=== PATIENT | female | born 1980 | race Caucasian/White ===

== ENCOUNTER 2019-08-25 17:43 | Emergency (ER) | payer BC, MEDICAID ==
[~2019-08-25] VITALS: Ht 157.5 cm; Wt 61.2 kg
--- NOTE | 2019-08-25 17:50 | NUR ---
ED Nurse Note: Pt ambulated to ED c/o worsened left chest/rib pain x 3 days; recently dx with lung cancer reports no N/V or fever or chills.
[2019-08-25 18:00] VITALS: BP 114/76
--- NOTE | 2019-08-25 18:13 | Emergency Room Report ---
History of Present Illness General Chief Complaint: Chest Pain Source: Patient Present Illness HPI Disclaimer: Please note that this report is being documented using Lancope technology. This can lead to erroneous entry secondary to incorrect interpretation by the dictating instrument. HPI: 39-year-old female history of lung cancer not yet undergoing treatment presents for evaluation of chest pain shortness of breath. Symptoms began a few days ago. She was recently discharged from [facility] after a stay for unspecified cough and vomiting. She claims of the past 2 days since her discharge she has worsening left-sided rib pain that is worse with bending and twisting motion and worse with coughing. Progressively worsening shortness of breath. Denies any fever or chills. Denies back pain. Denies abdominal pain, vomiting or diarrhea. She has not yet started chemotherapy or radiation but is scheduled to start in 3 days. A recent Port-A-Cath was inserted into the right chest. No long distance travel. No history of clots. PMH: Lung cancer, fibromyalgia PSH: Port placed in the right chest Allergies: Denies Social Hx: Former smoker Allergies: Coded Allergies: No Known Allergies (Verified Allergy, Unknown, 12/22/08) Patient History Last Menstrual Period: 07/28/19 Nursing Documentation-PM Past Medical History: No History, Except For Hx Cardiac Problems: No Hx Hypertension: No Hx Pacemaker: No Hx Asthma: No Hx COPD: No Hx Diabetes: No Hx Cancer: Yes - left lung CA stage IIB Hx Gastrointestinal Problems: Yes - Peptic ulcer Hx Dialysis: No History Of Psychiatric Problem: No Hx Neurological Problems: No Hx Cerebrovascular Accident: No Hx Seizures: No Review of Systems All Other Systems: negative except mentioned in HPI Physical Exam Vital Signs Date Time Temp Pulse Resp B/P (MAP) Pulse Ox O2 Delivery O2 Flow Rate FiO2 08/25/19 17:49 98.2 97 16 114/76 (89) 96 Room Air General: Awake and alert, no acute distress HEENT: NC/AT. EOMI. Neck: Supple, trachea midline Chest Wall: Left chest wall tender to palpation without palpable deformity Cardiovascular: RRR. S1 and S2 normal. No murmur appreciated Resp: Normal work of breathing. No cough, wheezing or crackles appreciated Skin: Intact. No abrasions, laceration or rash over the exposed skin MSK: Normal tone and bulk. Moving all extremities. No obvious deformity. Neuro: Awake and alert. Mentating appropriately. Back/Spine: No midline tenderness in the cervical, thoracic or lumbosacral spine. There is paraspinal tenderness in the upper thoracic spine and across the trapezius on the left side. Medical Decision Making Diagnostic Impression: Primary Impression: Chest wall pain Additional Impression: Back spasm ER Course 39-year-old female history of lung cancer, currently untreated, presents for evaluation of left-sided chest wall pain or shortness of breath. Differential includes was not limited to ACS, PE, musculoskeletal chest pain, muscle spasm, bronchitis, pneumonia, pneumothorax to name a few. We will start a broad metabolic infectious work-up. Will send cardiac enzymes and d-dimer. EKG obtained on arrival is nonischemic. Will treat with Toradol, Robaxin, lidocaine patch Laboratory Tests Test 08/25/19 18:19 White Blood Count 9.7 K/UL (4.8-10.8) Red Blood Count 4.44 M/UL (4.20-5.40) Hemoglobin 13.2 G/DL (12.0-16.0) Hematocrit 40.8 % (37.0-47.0) Mean Corpuscular Volume 92 FL (80-99) Mean Corpuscular Hemoglobin 29.8 PG (27.0-31.0) Mean Corpuscular Hemoglobin Concent 32.4 G/DL (32.0-36.0) Red Cell Distribution Width 12.1 % (11.6-14.8) Platelet Count 304 K/UL (150-450) Mean Platelet Volume 6.3 FL (6.5-10.1) L Neutrophils (%) (Auto) 59.9 % (45.0-75.0) Lymphocytes (%) (Auto) 29.2 % (20.0-45.0) Monocytes (%) (Auto) 8.4 % (1.0-10.0) Eosinophils (%) (Auto) 1.1 % (0.0-3.0) Basophils (%) (Auto) 1.3 % (0.0-2.0) D-Dimer 0.35 mg/L FEU (0.00-0.49) Sodium Level 140 MMOL/L (136-145) Potassium Level 4.1 MMOL/L (3.5-5.1) Chloride Level 104 MMOL/L (98-107) Carbon Dioxide Level 26 MMOL/L (21-32) Anion Gap 10 mmol/L (5-15) Blood Urea Nitrogen 11 mg/dL (7-18) Creatinine 0.7 MG/DL (0.55-1.30) Estimate Glomerular Filtration Rate > 60 mL/min (>60) Glucose Level 101 MG/DL (74-106) Calcium Level 9.5 MG/DL (8.5-10.1) Total Bilirubin 0.2 MG/DL (0.2-1.0) Aspartate Amino Transferase (AST) 15 U/L (15-37) Alanine Aminotransferase (ALT) 15 U/L (12-78) Alkaline Phosphatase 73 U/L (46-116) Troponin I 0.000 ng/mL (0.000-0.056) Total Protein 7.2 G/DL (6.4-8.2) Albumin 3.9 G/DL (3.4-5.0) Globulin 3.3 g/dL Albumin/Globulin Ratio 1.2 (1.0-2.7) EKG Diagnostic Results EKG Time: 18:07 Rate: normal Rhythm: NSR ST Segments: no acute changes Other Impression Sinus rhythm, normal axis, normal intervals, no ST segment changes. No S1Q3T3 pattern Rhythm Strip Diag. Results Rhythm Strip Time: 18:07 EP Interpretation: yes Rate: 80 Rhythm: NSR, no PVC's, no ectopy Chest X-Ray Diagnostic Results Chest X-Ray Diagnostic Results : Chest X-Ray Ordered: Yes # of Views/Limited/Complete: 1 View Indication: Chest Pain EP Interpretation: Yes Interpretation: no consolidation, no effusion, no pneumothorax, other - Mass in the left lung Impression: Other - Left lung mass Electronically Signed by: Electronically signed by Dr. Theodore Villeda Reevaluation Time: 19:56 Last Vital Signs Date Time Temp Pulse Resp B/P (MAP) Pulse Ox O2 Delivery O2 Flow Rate FiO2 08/25/19 17:49 98.2 97 16 114/76 (89) 96 Room Air Reevaluation Impression Patient feeling much better after receiving Robaxin and other medications. Labs including d-dimer are negative. She is feeling very well at this time. She will follow-up with her oncologist and PMD. Discussed reasons to return to the emergency department. She understands and agrees with treatment plan. Disposition: HOME, SELF-CARE Condition: Stable Scripts Methocarbamol* (ROBAXIN-750*) 750 Mg Tablet 750 MG PO QID, #28 TAB 0 Refills Prov: Theodore Villeda MD 08/25/19 Lidocaine Patch* (Lidoderm Patch*) 1 Each Adh..patch 1 PATCH TOPIC DAILY, #10 PATCH 0 Refills Patch(es) may remain in place for up to 12 hours in any 24-hour period. Prov: Theodore Villeda MD 08/25/19 Ibuprofen* (MOTRIN*) 600 Mg Tablet 600 MG ORAL Q8H PRN for For Pain, #30 TAB 0 Refills Prov: Theodore Villeda MD 08/25/19 Theodore Villeda MD Aug 25, 2019 18:13
[2019-08-25] MEDS ORDERED: Ketorolac 30mg Inj IV ONE (18:15)
[2019-08-25] MEDS ORDERED: Morphine Sulfate 2mg/ml Inj(IV/IM USE ONLY) IVP ONE (18:15)
--- NOTE | 2019-08-25 18:15 | NUR ---
ED Nurse Note: Obtained blood specimen; sent to labs.
[2019-08-25] MEDS ORDERED: Methocarbamol 750mg tab ORAL ONE (18:30)
[2019-08-25 18:46] LABS: BASOPHILS % (AUTO) 1.3 % (0.0-2.0); EOSINOPHILS % (AUTO) 1.1 % (0.0-3.0); HEMATOCRIT 40.8 % (37.0-47.0); HEMOGLOBIN 13.2 G/DL (12.0-16.0); LYMPHOCYTES % (AUTO) 29.2 % (20.0-45.0); MEAN CORPUSCULAR VOLUME 92 FL (80-99); MONOCYTES % (AUTO) 8.4 % (1.0-10.0); NEUTROPHILS % (AUTO) 59.9 % (45.0-75.0); PLATELET COUNT 304 K/UL (150-450); RED BLOOD COUNT 4.44 M/UL (4.20-5.40); RED CELL DISTRIBUTION WIDTH 12.1 % (11.6-14.8); WHITE BLOOD COUNT 9.7 K/UL (4.8-10.8)
[2019-08-25 18:52] LABS: ANION GAP 10 mmol/L (5-15); BLOOD UREA NITROGEN 11 mg/dL (7-18); CALCIUM 9.5 MG/DL (8.5-10.1); CARBON DIOXIDE 26 MMOL/L (21-32); CHLORIDE 104 MMOL/L (98-107); CREATININE 0.7 MG/DL (0.55-1.30); POTASSIUM 4.1 MMOL/L (3.5-5.1); SODIUM 140 MMOL/L (136-145)
[2019-08-25 18:57] LABS: ALANINE AMINOTRANSFERASE 15 U/L (12-78); ALBUMIN 3.9 G/DL (3.4-5.0); ALBUMIN/GLOBULIN RATIO 1.2 (1.0-2.7); ALKALINE PHOSPHATASE 73 U/L (46-116); ASPARTATE AMINO TRANSFERASE 15 U/L (15-37); BILIRUBIN,TOTAL 0.2 MG/DL (0.2-1.0)
--- NOTE | 2019-08-25 19:07 | NUR ---
HAND-OFF: Report given to Albina CHAVEZ.
--- NOTE | 2019-08-25 19:08 | NUR ---
ED Nurse Note: Report received from KATHY Quick. Pt resting in bed, VSS, no s/s of distress noted.
--- NOTE | 2019-08-25 19:46 | Diagnostic Imaging Report ---
EXAM: XR Chest, 1 View CLINICAL HISTORY: CP TECHNIQUE: Frontal view of the chest. COMPARISON: No relevant prior studies available. FINDINGS: Lungs: Left mid/upper lung 3.5 cm mass versus consolidation. Pleural space: Unremarkable. No pneumothorax. Heart: Unremarkable. No cardiomegaly. Mediastinum: Unremarkable. Bones/joints: Unremarkable. Tubes, lines and devices: Right Port-A-Cath. IMPRESSION: Left mid/upper lung 3.5 cm mass versus consolidation.
[2019-08-25 19:50] VITALS: BP 112/77
[2019-08-25] MEDS ORDERED: ROBAXIN-750750 MG PO (19:55)
[2019-08-25] MEDS ORDERED: IBUPROFEN600 MG ORAL (19:55)
[2019-08-25] MEDS ORDERED: LIDODERM700 M1 TOPIC (19:55)
[2019-08-25 20:00] VITALS: BP 112/77
--- NOTE | 2019-08-25 20:00 | NUR ---
ER DISCHARGE NOTE: Patient is cleared to be discharged home per ERMD, pt is aox4, on room air, with stable vital signs. pt was given dc and prescription instructions, pt was able to verbalize understanding, pt id band removed. pt is able to ambulate with steady gait. pt took all belongings.
== END 2019-08-25 20:00 | disposition home or self-care (01) ==
LOC: EMR 18:05
DX: R07.9 Chest pain, unspecified (principal); M62.830 Muscle spasm of back; R07.81 Pleurodynia; Z87.891 Personal history of nicotine dependence; M79.7 Fibromyalgia; Z87.11 Personal history of peptic ulcer disease; Z85.118 Personal history of other malignant neoplasm of bronchus and lung
CPT/HCPCS: 36415; 71045; 80053; 84484; 85025; 85379; 93005; 96374; 96375; J1885; J2270; Z7502; 99284

== ENCOUNTER 2019-11-13 18:47 | Emergency (ER) | payer MEDICAID ==
[~2019-11-13] VITALS: Ht 157.5 cm; Wt 56.7 kg
[~2019-11-13 18:47] MED LIST: IBUPROFEN600 MG ORAL; LIDODERM700 M1 TOPIC; ROBAXIN-750750 MG PO
--- NOTE | 2019-11-13 18:56 | NUR ---
ED Nurse Note: Pt walked into ED from home. Pt has lung cancer since May 2019. She has had chest pain since beginning of chemotherapy that is in chest, upper back, adn rib area. Pt chest pain is 7/10. Pt states she is constantly nauseous. Pt has proticath access on R chest wall. She also states she has had frequent urination, and need to pee constantly and dysuria. Pt is set up on monitor.
[2019-11-13 18:59] VITALS: BP 128/76
[2019-11-13] MEDS ORDERED: cefTRIAXone 1 GM in NS 55 ML IVPB ONE (19:00)
[2019-11-13] MEDS ORDERED: Morphine Sulfate 4mg/ml Inj (IV USE ONLY) IVP ONE (19:00)
--- NOTE | 2019-11-13 19:00 | NUR ---
ED Nurse Note: XR AT BEDSIDE
--- NOTE | 2019-11-13 19:03 | Emergency Room Report ---
History of Present Illness General Chief Complaint: General Complaint Source: Patient Present Illness HPI Patient presents from home reports that she is having increased pain with urination she had a significant history of bladder infection and Reports that she wants to be early in the diagnosis As last time she had difficulty finding the infection Patient also has been undergoing chemotherapy for left lung cancer And reports chest wall pain from chemotherapy Denies any pleurisy denies any fever denies any posterior neck pain however she does complain of some pain with swallowing which is similar to her previous chemotherapy pain Allergies: Coded Allergies: HALOPERIDOL (Verified Allergy, Unknown, 11/13/19) METOCLOPRAMIDE (Verified Allergy, Unknown, 11/13/19) COVID-19 Screening Contact w/high risk pt: No Recent Travel to affected area: No Experienced COVID-19 symptoms?: No Patient History Past Medical History: see triage record Reviewed Nursing Documentation: PMH: Agreed; PSxH: Agreed Nursing Documentation-PMH Hx Cardiac Problems: No Hx Hypertension: No Hx Pacemaker: No Hx Asthma: No Hx COPD: No Hx Diabetes: No Hx Cancer: Yes - left lung CA stage IIB Hx Gastrointestinal Problems: Yes - Peptic ulcer Hx Dialysis: No Hx Neurological Problems: No Hx Cerebrovascular Accident: No Hx Seizures: No Review of Systems All Other Systems: negative except mentioned in HPI Physical Exam Vital Signs Date Time Temp Pulse Resp B/P (MAP) Pulse Ox O2 Delivery O2 Flow Rate FiO2 11/13/19 18:51 98.8 99 19 124/70 (88) 99 Room Air Sp02 EP Interpretation: reviewed, normal General Appearance: well appearing, no apparent distress Head: normocephalic, atraumatic Eyes: bilateral eye PERRL, bilateral eye EOMI ENT: hearing grossly normal, normal pharynx, TMs + canals normal, uvula midline Neck: full range of motion, supple, no meningismus, no bony tend Respiratory: lungs clear, normal breath sounds, no rhonchi, no respiratory distress, no retraction, no accessory muscle use Cardiovascular #1: normal peripheral pulses, regular rate, rhythm, no edema, no gallop, no JVD, no murmur Gastrointestinal: normal bowel sounds, non tender, soft, no mass, no organomegaly, non-distended, no guarding, no hernia, no pulsatile mass, no rebound Genitourinary: no CVA tenderness Musculoskeletal: normal inspection Neurologic: motor strength/tone normal, steamboat pilot III-XII nml as tested, oriented x3 , sensory intact, responsive Psychiatric: mood/affect normal Skin: no rash Lymphatic: normal inspection, no adenopathy Medical Decision Making Diagnostic Impression: Primary Impression: Chest wall pain Additional Impression: Dysuria ER Course Multiple differentials including but not limited to cardiac, cardiopulmonary vascular, infectious process entertained patient's x-ray looks similar to previous with the left upper Lung mass EKG is normal patient's urine sample is not convincing for UTI On reevaluation patient feels significantly improved Feels much better with significantly decreased pain I feel patient is a candidate for improved pain management as outpatient process And will have further close outpatient follow-up Labs Test 11/13/19 19:38 Urine Color Yellow Urine Appearance Clear Urine pH 8 (4.5-8.0) Urine Specific [place] 1.010 (1.005-1.035) Urine Protein Negative (NEGATIVE) Urine Glucose (UA) Negative (NEGATIVE) Urine Ketones Negative (NEGATIVE) Urine Blood Negative (NEGATIVE) Urine Nitrite Negative (NEGATIVE) Urine Bilirubin Negative (NEGATIVE) Urine Urobilinogen Normal MG/DL (0.0-1.0) Urine Leukocyte Esterase 1+ (NEGATIVE) Urine RBC 0-2 /HPF (0 - 2) Urine WBC 0-2 /HPF (0 - 2) Urine Squamous Epithelial Cells Few /LPF (NONE/OCC) Urine Bacteria Few /HPF (NONE) EKG Diagnostic Results Rate: normal Rhythm: NSR ST Segments: no acute changes Rhythm Strip Diag. Results EP Interpretation: yes Rate: 60 Rhythm: NSR, no PVC's, no ectopy Chest X-Ray Diagnostic Results Chest X-Ray Diagnostic Results : Chest X-Ray Ordered: Yes # of Views/Limited/Complete: 1 View Indication: Chest Pain EP Interpretation: Yes Interpretation: no consolidation, no effusion, no pneumothorax, other - Upper lobe mass similar to previous Impression: Other - Left upper lobe mass similar to previous Electronically Signed by: Binu Deleon DO Last Vital Signs Date Time Temp Pulse Resp B/P (MAP) Pulse Ox O2 Delivery O2 Flow Rate FiO2 11/13/19 18:51 98.8 99 19 124/70 (88) 99 Room Air Status: improved Disposition: HOME, SELF-CARE Condition: Improved Referrals: NOT CHOSEN IPA/,REFERRING (PCP) Additional Instructions: Patient is provided with the discharge instructions notified to follow up with primary doctor in the next 2-3 days otherwise return to the er with any worsening symptoms. Please note that this report is being documented using DRAGON technology. This can lead to erroneous entry secondary to incorrect interpretation by the dictating instrument. Binu Deleon DO November 13, 2019 19:03
--- NOTE | 2019-11-13 19:05 | NUR ---
ED Nurse Note: URINE COLLECTED AND SENT TO LAB
[2019-11-13 19:45] LABS: APPEARANCE,URINE CLEAR; BILIRUBIN, URINE NEGATIVE (NEGATIVE); GLUCOSE, URINE (UA) NEGATIVE (NEGATIVE); KETONES,URINE NEGATIVE (NEGATIVE); LEUKOCYTE ESTERASE ,URINE 1+ (NEGATIVE); NITRITE,URINE NEGATIVE (NEGATIVE); PH,URINE 8 (4.5-8.0); PROTEIN,URINE NEGATIVE (NEGATIVE); UROBILINOGEN,URINE NORMAL MG/DL (0.0-1.0)
[2019-11-13 19:48] LABS: COLOR,URINE YELLOW
[2019-11-13 20:30] VITALS: BP 125/67
[2019-11-13 20:50] VITALS: BP 127/64
--- NOTE | 2019-11-14 08:58 | Diagnostic Imaging Report ---
Indication: Chest pain Technique: One view of the chest Comparison: 08/25/2019 Findings: Less optimal inspiration currently. Left upper lobe lung mass is unchanged. There is suggestion of left hilar adenopathy which is not evident previously. There is some scarring in the left perihilar region and left lung periphery. The remainder of the lungs and pleural spaces are clear. Right chest port catheter is again demonstrated. The heart size is normal. Impression: Unchanged left lung mass but possibly new or increasing left hilar adenopathy, since prior study of 08/25/2019 No infiltrate
== END 2019-11-13 20:50 | disposition home or self-care (01) ==
LOC: EMR 19:01
DX: R30.0 Dysuria (principal); R07.9 Chest pain, unspecified; C34.92 Malignant neoplasm of unspecified part of left bronchus or lung; Z88.8 Allergy status to other drugs, medicaments and biological substances
CPT/HCPCS: 71045; 81003; 93005; 96365; 96375; J0696; J2270; J2405; Z7502; 99284

== ENCOUNTER 2019-11-24 10:35 | Emergency (ER) | payer MEDICAID ==
[~2019-11-24] VITALS: Ht 154.9 cm; Wt 54.4 kg
--- NOTE | 2019-11-24 10:50 | NUR ---
ED Nurse Note: Pt ambulated to ED from home d/t chest pain since 5am and stated that she has been experiencing SOB 30 mins VP [employer]AS[employer]. Pt is AOx4 appears to be restless; crying. Placed on bed and gown; VSS, satting at 98% on RA. Droplet isolation precautions initiated. Per pt, she has hx of lung CA stage 3 and is on chemo; port-a-cath in placed. Will continue to monitor.
[2019-11-24 11:00] VITALS: BP 157/74
--- NOTE | 2019-11-24 11:00 | NUR ---
ED Nurse Note: x-ray at bedside.
--- NOTE | 2019-11-24 11:20 | NUR ---
ED Nurse Note: Blood, urine specimen; covid swabs collected; sent to labs.
[2019-11-24 11:41] LABS: APPEARANCE,URINE CLEAR; BILIRUBIN, URINE NEGATIVE (NEGATIVE); GLUCOSE, URINE (UA) NEGATIVE (NEGATIVE); KETONES,URINE NEGATIVE (NEGATIVE); LEUKOCYTE ESTERASE ,URINE NEGATIVE (NEGATIVE); NITRITE,URINE NEGATIVE (NEGATIVE); PH,URINE 8 (4.5-8.0); PROTEIN,URINE NEGATIVE (NEGATIVE); UROBILINOGEN,URINE NORMAL MG/DL (0.0-1.0)
[2019-11-24 11:42] LABS: HEMATOCRIT 32.1 % (37.0-47.0); HEMOGLOBIN 11.6 G/DL (12.0-16.0); MEAN CORPUSCULAR VOLUME 86 FL (80-99); PLATELET COUNT 219 K/UL (150-450); RED BLOOD COUNT 3.73 M/UL (4.20-5.40); RED CELL DISTRIBUTION WIDTH 12.5 % (11.6-14.8); WHITE BLOOD COUNT 3.5 K/UL (4.8-10.8)
[2019-11-24 11:43] LABS: ANION GAP 9 mmol/L (5-15); BLOOD UREA NITROGEN 14 mg/dL (7-18); CALCIUM 9.3 MG/DL (8.5-10.1); CARBON DIOXIDE 26 MMOL/L (21-32); CHLORIDE 106 MMOL/L (98-107); CREATININE 0.7 MG/DL (0.55-1.30); POTASSIUM 3.6 MMOL/L (3.5-5.1); SODIUM 141 MMOL/L (136-145)
[2019-11-24 11:44] LABS: COLOR,URINE YELLOW
[2019-11-24 11:50] LABS: ALANINE AMINOTRANSFERASE 23 U/L (12-78); ALBUMIN 3.8 G/DL (3.4-5.0); ALBUMIN/GLOBULIN RATIO 1.3 (1.0-2.7); ALKALINE PHOSPHATASE 59 U/L (46-116); ASPARTATE AMINO TRANSFERASE 21 U/L (15-37); BILIRUBIN,TOTAL 0.2 MG/DL (0.2-1.0)
[2019-11-24] MEDS ORDERED: LORazepam 1mg tab ORAL ONE ×2 (12:30→14:15)
[2019-11-24] MEDS ORDERED: Morphine Sulfate 10mg/ml Inj IVP ONE (12:30)
[2019-11-24 12:46] VITALS: BP 125/68
--- NOTE | 2019-11-24 14:18 | Emergency Room Report ---
History of Present Illness General Chief Complaint: Chest Pain Source: Patient Present Illness [facility] This patient has a history of metastatic lung cancer. The patient is undergoing chemotherapy. She presents for all over pain. She has chest pain. She has bladder pain. She states she is incredibly anxious. She states she is unable to sleep. She states all of these symptoms are chronic. She is terrified that she is going to of a heart attack or some other rapid horrible . She is under the care of an oncologist. She is on multiple pain medications and antianxiety medications. She states she is very frustrated because she has had ongoing uncontrolled pain and anxiety. Allergies: Coded Allergies: HALOPERIDOL (Verified Allergy, Unknown, 11/13/19) METOCLOPRAMIDE (Verified Allergy, Unknown, 11/13/19) COVID-19 Screening Contact w/high risk pt: No Recent Travel to affected area: No Experienced COVID-19 symptoms?: Yes COVID-19 symptoms experienced: Shortness of Breath COVID-19 Testing performed ORNAMENTER: No Patient History Past Medical History: GERD, other - Metastatic lung ca Social History: Denies: smoking, alcohol use, drug use Now: No Reviewed Nursing Documentation: PMH: Agreed; PSxH: Agreed Nursing Documentation-PMH Past Medical History: No History, Except For Hx Cardiac Problems: No Hx Hypertension: No Hx Pacemaker: No Hx Asthma: No Hx COPD: No Hx Diabetes: No Hx Cancer: Yes - left lung CA stage IIB Hx Gastrointestinal Problems: Yes - Peptic ulcer Hx Dialysis: No Hx Neurological Problems: No Hx Cerebrovascular Accident: No Hx Seizures: No Review of Systems All Other Systems: negative except mentioned in HPI Physical Exam Vital Signs Date Time Temp Pulse Resp B/P (MAP) Pulse Ox O2 Delivery O2 Flow Rate FiO2 11/24/19 10:47 98.2 102 16 157/74 (101) 97 Room Air Sp02 EP Interpretation: reviewed, normal General Appearance: no apparent distress, alert, GCS 15, non-toxic Head: normocephalic, atraumatic Eyes: bilateral eye normal inspection, bilateral eye PERRL ENT: hearing grossly normal, normal pharynx, no angioedema, normal voice Neck: full range of motion, supple/symm/no masses Respiratory: lungs clear, no respiratory distress, no retraction, no accessory muscle use, speaking full sentences Cardiovascular #1: regular rate, rhythm Gastrointestinal: normal inspection, non-distended Rectal: deferred Musculoskeletal: back normal, normal range of motion, gait/station normal, non- tender Neurologic: alert, motor strength/tone normal, oriented x3, sensory intact, responsive, speech normal Psychiatric: judgement/insight normal, memory normal, mood/affect normal, no suicidal/homicidal ideation Skin: normal color Medical Decision Making Diagnostic Impression: Primary Impression: Chest pain Additional Impressions: Anxiety about health Lung cancer ER Course This patient has nonspecific chest pain. Given the length of symptoms, this workup is very reassuring with negative cardiac enzymes, normal EKG, and normal chest x-ray. The patient is low risk and his symptoms are atypical for acute coronary syndrome. I have very low suspicion for PE, aortic dissection or pneumothorax based on history/physical, laboratory and radiologic workup. The patient has had these ongoing symptoms for some time since being diagnosed with lung cancer. The patient is incredibly anxious and terrified. She has many home medications to include Valium, Xanax and Ambien. I did not feel that it would be appropriate to add any further medications to this regimen that could possibly harm her. She does need to undergo psychotherapy as I think this diagnosis has caused her intense anxiety. I did give the patient Pyridium for her report of urinary frequency and bladder cramping. The patient does have a poor long-term prognosis. The patient was instructed to follow-up closely with her primary care physician and her oncologist. At this time I did not identify an emergency medical condition. The patient was given close return precautions and followup instructions. Laboratory Tests Test 11/24/19 11:15 White Blood Count 3.5 K/UL (4.8-10.8) L Red Blood Count 3.73 M/UL (4.20-5.40) L Hemoglobin 11.6 G/DL (12.0-16.0) L Hematocrit 32.1 % (37.0-47.0) L Mean Corpuscular Volume 86 FL (80-99) Mean Corpuscular Hemoglobin 31.1 PG (27.0-31.0) H Mean Corpuscular Hemoglobin Concent 36.2 G/DL (32.0-36.0) H Red Cell Distribution Width 12.5 % (11.6-14.8) Platelet Count 219 K/UL (150-450) Mean Platelet Volume 5.4 FL (6.5-10.1) L Neutrophils (%) (Auto) % (45.0-75.0) Lymphocytes (%) (Auto) % (20.0-45.0) Monocytes (%) (Auto) % (1.0-10.0) Eosinophils (%) (Auto) % (0.0-3.0) Basophils (%) (Auto) % (0.0-2.0) Differential Total Cells Counted 100 Neutrophils % (Manual) 65 % (45-75) Lymphocytes % (Manual) 26 % (20-45) Monocytes % (Manual) 9 % (1-10) Eosinophils % (Manual) 0 % (0-3) Basophils % (Manual) 0 % (0-2) Band Neutrophils 0 % (0-8) Platelet Estimate Adequate Platelet Morphology Normal Red Blood Cell Morphology Normal Urine Color Yellow Urine Appearance Clear Urine pH 8 (4.5-8.0) Urine Specific [place] 1.010 (1.005-1.035) Urine Protein Negative (NEGATIVE) Urine Glucose (UA) Negative (NEGATIVE) Urine Ketones Negative (NEGATIVE) Urine Blood Negative (NEGATIVE) Urine Nitrite Negative (NEGATIVE) Urine Bilirubin Negative (NEGATIVE) Urine Urobilinogen Normal MG/DL (0.0-1.0) Urine Leukocyte Esterase Negative (NEGATIVE) Urine HCG, Qualitative Negative (NEGATIVE) Sodium Level 141 MMOL/L (136-145) Potassium Level 3.6 MMOL/L (3.5-5.1) Chloride Level 106 MMOL/L (98-107) Carbon Dioxide Level 26 MMOL/L (21-32) Anion Gap 9 mmol/L (5-15) Blood Urea Nitrogen 14 mg/dL (7-18) Creatinine 0.7 MG/DL (0.55-1.30) Estimated Glomerular Filtration Rate > 60 mL/min (>60) Glucose Level 102 MG/DL (74-106) Calcium Level 9.3 MG/DL (8.5-10.1) Total Bilirubin 0.2 MG/DL (0.2-1.0) Aspartate Amino Transferase (AST) 21 U/L (15-37) Alanine Aminotransferase (ALT) 23 U/L (12-78) Alkaline Phosphatase 59 U/L (46-116) Troponin I 0.000 ng/mL (0.000-0.056) Total Protein 6.7 G/DL (6.4-8.2) Albumin 3.8 G/DL (3.4-5.0) Globulin 2.9 g/dL Albumin/Globulin Ratio 1.3 (1.0-2.7) Urine Opiates Screen Negative (NEGATIVE) Urine Barbiturates Screen Negative (NEGATIVE) Phencyclidine (PCP) Screen Negative (NEGATIVE) Urine Amphetamines Screen Negative (NEGATIVE) Urine Benzodiazepines Screen Positive (NEGATIVE) H Urine Cocaine Screen Negative (NEGATIVE) Urine Marijuana (THC) Screen Positive (NEGATIVE) H EKG Diagnostic Results Rate: normal Rhythm: NSR ST Segments: no acute changes Rhythm Strip Diag. Results EP Interpretation: yes Rhythm: NSR, no PVC's, no ectopy Chest X-Ray Diagnostic Results Chest X-Ray Diagnostic Results : Chest X-Ray Ordered: Yes # of Views/Limited/Complete: 1 View Indication: Chest Pain EP Interpretation: Yes Interpretation: other - Lung mass unchanged. Impression: No acute disease Electronically Signed by: Ирина Cedillo DO Last Vital Signs Date Time Temp Pulse Resp B/P (MAP) Pulse Ox O2 Delivery O2 Flow Rate FiO2 11/24/19 12:46 98.2 87 16 125/68 97 Room Air Status: improved Disposition: HOME, SELF-CARE Condition: Improved Scripts Phenazopyridine Hcl* (PYRIDIUM*) 200 Mg Tablet 200 MG ORAL THREE TIMES A DAY, #14 TAB 0 Refills Prov: Ирина Cedillo DO 11/24/19 Referrals: NOT CHOSEN IPA/MD,REFERRING (PCP) Patient Instructions: Nonspecific Chest Pain Ирина Cedillo DO November 24, 2019 14:18
[2019-11-24] MEDS ORDERED: PHENAZOPYRIDIN200 MG ORAL (14:43)
[2019-11-24 15:00] VITALS: BP 128/70
--- NOTE | 2019-11-24 15:00 | NUR ---
ER DISCHARGE NOTE: Pt is cleared to be discharged per ERMD, pt is aox4, on room air, with stable vital signs. pt was given dc and prescription instructions, pt was able to verbalize understanding, pt id band. pt is able to ambulate with steady gait. pt took all belongings.
--- NOTE | 2019-11-24 16:31 | Diagnostic Imaging Report ---
Procedure: XRAY Chest 1v Reason for study: Chest pain Comparison films: 11/13/2019. FINDINGS: There is a Port-A-Cath in place. Vascularity is normal. Left upper lobe mass density again noted unchanged. Cardiac and mediastinal silhouette are within normal limits. CP angles are sharp. The bony thorax appear unremarkable. IMPRESSION: No change left upper lobe mass opacity.
== END 2019-11-24 15:00 | disposition home or self-care (01) ==
LOC: EMR 11:26
DX: R07.9 Chest pain, unspecified (principal); F41.9 Anxiety disorder, unspecified; C34.92 Malignant neoplasm of unspecified part of left bronchus or lung; K21.9 Gastro-esophageal reflux disease without esophagitis; R06.02 Shortness of breath; Z88.8 Allergy status to other drugs, medicaments and biological substances
CPT/HCPCS: 36415; 71045; 80053; 80307; 81003; 81025; 84484; 85007; 85025; 87635; 93005; 96361; 96374; 96375; J2270; J2405; J7030; Z7502; 99284

== ENCOUNTER 2019-12-09 11:51 | Emergency (ER) | payer MEDICAID ==
[~2019-12-09] VITALS: Ht 157.5 cm; Wt 56.7 kg
[~2019-12-09 11:51] MED LIST changes: +PHENAZOPYRIDIN200 MG ORAL
--- NOTE | 2019-12-09 12:26 | Emergency Room Report ---
History of Present Illness General Chief Complaint: Chest Pain Source: Patient Present Illness HPI Disclaimer: Please note that this report is being documented using [employer] technology. This can lead to erroneous entry secondary to incorrect interpretation by the dictating instrument. HPI: 39-year-old female history of metastatic lung cancer presents for evaluation of chest pain, palpitations and headache. Patient was recently discharged from nearby hospital with similar complaints after a long work-up. She was previously receiving chemotherapy but states she is now in hospice care. No longer receiving treatment for her metastatic cancer. Reports that she has no new brain metastases diagnosed on recent hospitalization. She is complaining of persistent bladder spasms for which she was seen several weeks ago in this emergency department. Reports dysuria. Very anxious and emotional. PMH: Metastatic lung cancer, fibromyalgia, bladder spasm PSH: Port placed in the right chest Allergies: Denies Social Hx: Former smoker Allergies: Coded Allergies: HALOPERIDOL (Verified Allergy, Unknown, 11/13/19) METOCLOPRAMIDE (Verified Allergy, Unknown, 11/13/19) COVID-19 Screening Contact w/high risk pt: No Recent Travel to affected area: No Experienced COVID-19 symptoms?: No COVID-19 symptoms experienced: Shortness of Breath COVID-19 Testing performed LEGAL ASSOCIATE: Yes COVID-19 Screening: Negative COVID-19 COVID-19 Testing Source: n Patient History Now: No Nursing Documentation-PMH Hx Cardiac Problems: No Hx Hypertension: No Hx Pacemaker: No Hx Asthma: No Hx COPD: No Hx Diabetes: No Hx Cancer: 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 EOMI. Cardiovascular: Mild tachycardia. S1 and S2 normal. No murmur appreciated Resp: Normal work of breathing. No cough, wheezing or crackles appreciated Abdomen: Abdomen is soft, nondistended. Nontender Skin: Intact. No abrasions, laceration or rash over the exposed skin MSK: Normal tone and bulk. Moving all extremities. No obvious deformity. Neuro: Awake and alert. Mentating appropriately. Medical Decision Making Diagnostic Impression: Primary Impression: Anxiety Additional Impressions: Bladder spasms Palpitations Lung cancer ER Course 39-year-old female history of metastatic cancer now on hospice care presents for evaluation of acute worsening headache, palpitations, anxiety and bladder pain. Patient has been previously seen for the symptoms however given the acute nature of the worsening headache and her history of metastases concern for acute intracranial bleed. Will obtain rapid head CT. We will draw broad labs including cardiac enzymes EKG and chest x-ray to assess her other complaints. Laboratory Tests Test 12/09/19 12:41 12/09/19 13:20 Urine Color Yellow Urine Appearance Clear Urine pH 8 (4.5-8.0) Urine Specific [place] 1.005 (1.005-1.035) Urine Protein Negative (NEGATIVE) Urine Glucose (UA) Negative (NEGATIVE) Urine Ketones Negative (NEGATIVE) Urine Blood Negative (NEGATIVE) Urine Nitrite Negative (NEGATIVE) Urine Bilirubin Negative (NEGATIVE) Urine Urobilinogen Normal MG/DL (0.0-1.0) Urine Leukocyte Esterase Negative (NEGATIVE) White Blood Count 6.1 K/UL (4.8-10.8) Red Blood Count 4.16 M/UL (4.20-5.40) L Hemoglobin 12.8 G/DL (12.0-16.0) Hematocrit 36.6 % (37.0-47.0) L Mean Corpuscular Volume 88 FL (80-99) Mean Corpuscular Hemoglobin 30.7 PG (27.0-31.0) Mean Corpuscular Hemoglobin Concent 35.0 G/DL (32.0-36.0) Red Cell Distribution Width 11.9 % (11.6-14.8) Platelet Count 206 K/UL (150-450) Mean Platelet Volume 5.4 FL (6.5-10.1) L Neutrophils (%) (Auto) 80.9 % (45.0-75.0) H Lymphocytes (%) (Auto) 9.8 % (20.0-45.0) L Monocytes (%) (Auto) 7.5 % (1.0-10.0) Eosinophils (%) (Auto) 0.9 % (0.0-3.0) Basophils (%) (Auto) 0.9 % (0.0-2.0) Sodium Level 141 MMOL/L (136-145) Potassium Level 3.6 MMOL/L (3.5-5.1) Chloride Level 103 MMOL/L (98-107) Carbon Dioxide Level 28 MMOL/L (21-32) Anion Gap 10 mmol/L (5-15) Blood Urea Nitrogen 9 mg/dL (7-18) Creatinine 0.8 MG/DL (0.55-1.30) Estimated Glomerular Filtration Rate > 60 mL/min (>60) Glucose Level 120 MG/DL (74-106) H Calcium Level 9.8 MG/DL (8.5-10.1) Magnesium Level 1.8 MG/DL (1.8-2.4) Total Bilirubin 0.3 MG/DL (0.2-1.0) Aspartate Amino Transferase (AST) 18 U/L (15-37) Alanine Aminotransferase (ALT) 24 U/L (12-78) Alkaline Phosphatase 52 U/L (46-116) Troponin I 0.000 ng/mL (0.000-0.056) Total Protein 6.9 G/DL (6.4-8.2) Albumin 4.4 G/DL (3.4-5.0) Globulin 2.5 g/dL Albumin/Globulin Ratio 1.8 (1.0-2.7) EKG Diagnostic Results EKG Time: 12:18 Rate: normal Rhythm: NSR ST Segments: no acute changes Other Impression Sinus rhythm, normal axis, normal intervals, no ST segment changes Rhythm Strip Diag. Results Rhythm Strip Time: 12:18 EP Interpretation: yes Rate: 80s Rhythm: NSR, no PVC's, no ectopy Chest X-Ray Diagnostic Results Chest X-Ray Diagnostic Results : Chest X-Ray Ordered: Yes # of Views/Limited/Complete: 1 View Indication: Chest Pain EP Interpretation: Yes Interpretation: no effusion, no pneumothorax, other - Left upper lobe mass unchanged from previous. Impression: Other - Left upper lobe mass Electronically Signed by: Electronically signed by Dr. Theodore Villeda CT/MRI/US Diagnostic Results CT/MRI/US Diagnostic Results : Impression Final Report EXAM: CT Head Without Intravenous Contrast CLINICAL HISTORY: H/A TECHNIQUE: Axial computed tomography images of the head/brain without intravenous contrast. CTDI is 53.4 mGy and DLP is 1075.7 mGy-cm. One or more of the following dose reduction techniques were used: automated exposure control, adjustment of the mA and/or kV according to patient size, use of iterative reconstruction technique. COMPARISON: None FINDINGS: Brain: No acute infarct or hemorrhage. No extra-axial fluid collection. No mass effect or midline shift. Ventricles and sulci: Normal. No ventriculomegaly or intraventricular hemorrhage. Bones: Normal. No bony lesion or fracture. Subcutaneous tissues: Normal. Sinuses: Normal. No air-fluid levels or mucosal thickening. Mastoid air cells: Normal. Orbits: Grossly unremarkable. IMPRESSION: No acute intracranial abnormality. Radiologist: Jose Enrique Self M.D. Electronically Signed: 12/09/19 12:55 Study ready at 12:54 and initial results transmitted at 12:55 Reevaluation Time: 14:00 Last Vital Signs Date Time Temp Pulse Resp B/P (MAP) Pulse Ox O2 Delivery O2 Flow Rate FiO2 12/09/19 11:56 98.4 106 19 107/61 (76) 96 Room Air Reevaluation Impression Chest x-ray redemonstrates the left upper lobe mass seen on previous imaging consistent with the patient's history of lung cancer. No findings of bleeding or mass noted. Labs have returned within normal limits including a negative troponin. EKG unchanged from previous. She is very anxious and emotional. Urinalysis does not suggest a urinary tract infection at this time the patient complaining of persistent urinary symptoms. She has been treated for bladder spasm with baclofen in the past and states this was the only successful treatment. Will prescribe a short course of baclofen until the patient can establish yourself and hospice care which is scheduled for later today. She is stable for outpatient follow-up. I urged her to discuss today's visit with her oncologist and PMD as well as her hospice team. She understands and agrees with treatment plan will be discharged home. Disposition: HOME, SELF-CARE Condition: Stable Scripts Baclofen* (BACLOFEN*) 10 Mg Tablet 10 MG ORAL THREE TIMES A DAY for 3 Days, #10 TAB Prov: Theodore Villeda MD 12/09/19 Ondansetron (Zofran) 4 Mg Tablet 4 MG ORAL Q6H PRN for Nausea & Vomiting for 5 Days, #20 TAB Prov: Theodore Villeda MD 12/09/19 Referrals: NOT CHOSEN IPA/MD,REFERRING (PCP) Theodore Villeda MD December 09, 2019 12:26
[2019-12-09] MEDS ORDERED: Morphine Sulfate 4mg/ml Inj (IV USE ONLY) IVP ONE (12:30)
--- NOTE | 2019-12-09 12:55 | Diagnostic Imaging Report ---
EXAM: CT Head Without Intravenous Contrast CLINICAL HISTORY: H/A TECHNIQUE: Axial computed tomography images of the head/brain without intravenous contrast. CTDI is 53.4 mGy and DLP is 1075.7 mGy-cm. One or more of the following dose reduction techniques were used: automated exposure control, adjustment of the mA and/or kV according to patient size, use of iterative reconstruction technique. COMPARISON: None FINDINGS: Brain: No acute infarct or hemorrhage. No extra-axial fluid collection. No mass effect or midline shift. Ventricles and sulci: Normal. No ventriculomegaly or intraventricular hemorrhage. Bones: Normal. No bony lesion or fracture. Subcutaneous tissues: Normal. Sinuses: Normal. No air-fluid levels or mucosal thickening. Mastoid air cells: Normal. Orbits: Grossly unremarkable. IMPRESSION: No acute intracranial abnormality.
[2019-12-09 13:02] LABS: APPEARANCE,URINE CLEAR; BILIRUBIN, URINE NEGATIVE (NEGATIVE); GLUCOSE, URINE (UA) NEGATIVE (NEGATIVE); KETONES,URINE NEGATIVE (NEGATIVE); LEUKOCYTE ESTERASE ,URINE NEGATIVE (NEGATIVE); NITRITE,URINE NEGATIVE (NEGATIVE); PH,URINE 8 (4.5-8.0); PROTEIN,URINE NEGATIVE (NEGATIVE); UROBILINOGEN,URINE NORMAL MG/DL (0.0-1.0)
[2019-12-09 13:05] LABS: COLOR,URINE YELLOW
[2019-12-09 14:01] LABS: BASOPHILS % (AUTO) 0.9 % (0.0-2.0); EOSINOPHILS % (AUTO) 0.9 % (0.0-3.0); HEMATOCRIT 36.6 % (37.0-47.0); HEMOGLOBIN 12.8 G/DL (12.0-16.0); LYMPHOCYTES % (AUTO) 9.8 % (20.0-45.0); MEAN CORPUSCULAR VOLUME 88 FL (80-99); MONOCYTES % (AUTO) 7.5 % (1.0-10.0); NEUTROPHILS % (AUTO) 80.9 % (45.0-75.0); PLATELET COUNT 206 K/UL (150-450); RED BLOOD COUNT 4.16 M/UL (4.20-5.40); RED CELL DISTRIBUTION WIDTH 11.9 % (11.6-14.8); WHITE BLOOD COUNT 6.1 K/UL (4.8-10.8)
[2019-12-09 14:19] LABS: ANION GAP 10 mmol/L (5-15); BLOOD UREA NITROGEN 9 mg/dL (7-18); CALCIUM 9.8 MG/DL (8.5-10.1); CARBON DIOXIDE 28 MMOL/L (21-32); CHLORIDE 103 MMOL/L (98-107); CREATININE 0.8 MG/DL (0.55-1.30); POTASSIUM 3.6 MMOL/L (3.5-5.1); SODIUM 141 MMOL/L (136-145)
[2019-12-09 14:25] LABS: ALANINE AMINOTRANSFERASE 24 U/L (12-78); ALBUMIN 4.4 G/DL (3.4-5.0); ALBUMIN/GLOBULIN RATIO 1.8 (1.0-2.7); ALKALINE PHOSPHATASE 52 U/L (46-116); ASPARTATE AMINO TRANSFERASE 18 U/L (15-37); BILIRUBIN,TOTAL 0.3 MG/DL (0.2-1.0)
[2019-12-09] MEDS ORDERED: ZOFRAN4 M1 ORAL (14:31)
[2019-12-09] MEDS ORDERED: BACLOFEN10 MG ORAL (14:31)
--- NOTE | 2019-12-09 15:04 | Diagnostic Imaging Report ---
EXAM: XR Chest, 1 View CLINICAL HISTORY: CP TECHNIQUE: Frontal view of the chest. COMPARISON: Chest radiograph on 11/24/2019 FINDINGS: Hardware: Right-sided Port-A-Cath terminates near the junction of the SVC and right atrium. Lungs/pleura: Stable opacity in the left upper lung. No other focal consolidation. No pleural effusion or pneumothorax. Heart/mediastinum: Normal. No cardiomegaly. Soft tissues: Unremarkable. Bones: No acute fracture. Upper abdomen: Normal. IMPRESSION: Stable opacity in the left upper lung. No other focal consolidation.
[2019-12-09 18:10] VITALS: BP 107/75
[2019-12-10] MEDS ORDERED: VALIUM5 MG ORAL (00:30)
[2019-12-10] MEDS ORDERED: NORCO 5-325 TA1 EAC1 ORAL (00:30)
== END 2019-12-09 14:54 | disposition home or self-care (01) ==
LOC: EMR 12:10
DX: F41.9 Anxiety disorder, unspecified (principal); N32.89 Other specified disorders of bladder; R00.2 Palpitations; C34.92 Malignant neoplasm of unspecified part of left bronchus or lung; R06.02 Shortness of breath; Z88.8 Allergy status to other drugs, medicaments and biological substances; M79.7 Fibromyalgia; Z87.891 Personal history of nicotine dependence; R30.0 Dysuria; R00.0 Tachycardia, unspecified
CPT/HCPCS: 36415; 70450; 71045; 80053; 81003; 83735; 84484; 85025; 93005; 96361; 96374; 96375; J2270; J2405; J7030; Z7502; 99284

== ENCOUNTER 2019-12-09 22:47 | Emergency (ER) | payer MEDICAID ==
[~2019-12-09] VITALS: Ht 157.5 cm; Wt 54.4 kg
[~2019-12-09 22:47] MED LIST changes: +BACLOFEN10 MG ORAL; +ZOFRAN4 M1 ORAL
[2019-12-09 23:00] VITALS: BP 114/60
--- NOTE | 2019-12-09 23:42 | Emergency Room Report ---
History of Present Illness General Chief Complaint: Headache Source: Patient Present Illness HPI Patient is a 39-year-old female history of metastatic lung cancer presents for evaluation of anxiety, palpitations, and headache. Patient was recently discharged from nearby hospital with similar complaints after a long work-up. She was also seen here this morning for the similar complaint. She was previously receiving chemotherapy but states she is now in hospice care. No longer receiving treatment for her metastatic cancer. Reports that she has new brain metastases diagnosed on recent hospitalization at [facility]. Patient states that she was given pain medication and was discharged home this morning. Patient states that she is supposed to have hospice care but that they were unable to see them this weekend due to the COVID-19 pandemic in the current [place]. Patient is requesting pain medicine as well as something for anxiety. Allergies: Coded Allergies: HALOPERIDOL (Verified Allergy, Unknown, 11/13/19) METOCLOPRAMIDE (Verified Allergy, Unknown, 11/13/19) COVID-19 Screening Contact w/high risk pt: No Recent Travel to affected area: No Experienced COVID-19 symptoms?: No COVID-19 symptoms experienced: Shortness of Breath COVID-19 Testing performed HANDS PARTER: No Patient History Last Menstrual Period: na Now: No Reviewed Nursing Documentation: PMH: Agreed; PSxH: Agreed Nursing Documentation-PMH Past Medical History: No History, Except For Hx Cardiac Problems: No Hx Hypertension: No Hx Pacemaker: No Hx Asthma: No Hx COPD: No Hx Diabetes: No Hx Cancer: Yes - left lung CA stage IIB Hx Gastrointestinal Problems: Yes - Peptic ulcer Hx Dialysis: No Hx Neurological Problems: No Hx Cerebrovascular Accident: No Hx Seizures: No Review of Systems All Other Systems: negative except mentioned in HPI Physical Exam Vital Signs Date Time Temp Pulse Resp B/P (MAP) Pulse Ox O2 Delivery O2 Flow Rate FiO2 12/09/19 22:55 98.1 97 17 114/60 (78) 97 Room Air Sp02 EP Interpretation: reviewed, normal General Appearance: alert, GCS 15, other - anxious Head: normocephalic, atraumatic Eyes: bilateral eye normal inspection, bilateral eye PERRL ENT: hearing grossly normal, normal pharynx, no angioedema, normal voice Neck: full range of motion, supple/symm/no masses Respiratory: chest non-tender, lungs clear, normal breath sounds, speaking full sentences, other - Right anterior chest wall PowerPort in place Cardiovascular #1: regular rate, rhythm, no edema Gastrointestinal: normal bowel sounds, non tender, soft, non-distended, no guarding, no rebound Rectal: deferred Genitourinary: no CVA tenderness Musculoskeletal: back normal, normal range of motion, calf tenderness, gait/ station normal, non-tender Neurologic: alert, motor strength/tone normal, oriented x3, sensory intact, responsive, speech normal Psychiatric: anxious Skin: no rash Lymphatic: no adenopathy Medical Decision Making Diagnostic Impression: Primary Impression: Anxiety Additional Impressions: Palpitations Pain ER Course Patient states that she is stage IV metastatic lung cancer and no longer on treatment. She states that she is very anxious about her health. Patient also complains of chronic pain which is unchanged. Patient's labs demonstrate no acute abnormalities. Patient has been hydrated and I have treated her anxiety and pain. I have given patient prescription for 3 days until she can see her hospice care nurse. After discussing risks and benefits of further diagnostics , treatment plans, as well as indications for and risks of admission, the patient is agreeable to being discharged home. I have explained that their evaluation and treatment in the emergency department today is an important step towards them achieving better health but that their evaluation today is not intended to replace further evaluation and treatment by a physician in their local clinic. I have explained that while the current findings suggest no immediate life threatening emergency they will require further evaluation and treatment by a physician of their choice in their area. They understand that it will be necessary for them to review the final reports of their ED visit with their clinic physician. We have reviewed indications for return to the Emergency Department. I have explained that additional time may need to pass and/or additional testing as an outpatient may be necessary before a definitive diagnosis can be made. They tell me they are willing to follow up as instructed within the timeframe I recommend. They appear to understand what we discussed. Additionally they understand that if they are unable to be seen by an outpatient physician they are welcome, and in fact should, return to the Emergency Department for a repeat evaluation. The patient is stable at time of discharge. Last Vital Signs Date Time Temp Pulse Resp B/P (MAP) Pulse Ox O2 Delivery O2 Flow Rate FiO2 12/08/20 22:55 98.1 97 17 114/60 (78) 97 Room Air Disposition: HOME, SELF-CARE Condition: Stable Scripts Hydrocodone Bit/Acetaminophen 5-325* (NORCO 5-325 TABLET*) 1 Each Tablet 1 TAB ORAL Q6H PRN for FOR PAIN, #15 TAB 0 Refills Prov: Gabby Cook M.D. 12/10/19 Diazepam* (VALIUM*) 5 Mg Tablet 5 MG ORAL TID PRN for ANXIETY, #15 TAB 0 Refills Prov: Gabby Cook M.D. 12/10/19 Referrals: NON PHYSICIAN (PCP) Additional Instructions: The patient was provided with discharge instructions, notified to follow-up with a primary care doctor and or specialist in the next 24-48 hours, and to return to the ED if they have worsening of their symptoms. Please note that this report is being documented using [employer] technology. This can lead to erroneous entry secondary to incorrect interpretation by the dictating instrument. Gabby Cook M.D. December 09, 2019 23:42
--- NOTE | 2019-12-09 23:50 | Diagnostic Imaging Report ---
EXAM: XR Chest, 1 View CLINICAL HISTORY: ABD PAIN TECHNIQUE: Frontal view of the chest. COMPARISON: Same-day study 10 hours prior FINDINGS: Lungs: Persistent left upper lung hazy 2.5 cm opacity concerning for pneumonia, recommend correlation with prior imaging or CT to further characterize. Low lung volumes with bronchovascular crowding. No consolidation, pleural effusion, or pneumothorax. Pleural space: See above. Heart: Unremarkable. No cardiomegaly. Mediastinum: Unremarkable. Bones/joints: Unremarkable. Tubes, lines and devices: Unchanged right chest IJ approach infusion port. IMPRESSION: 1. Persistent left upper lung hazy 2.5 cm opacity concerning for pneumonia, recommend correlation with prior imaging or CT to further characterize. 2. Unchanged right chest IJ approach infusion port. 3. Low lung volumes with bronchovascular crowding. 4. Otherwise no acute cardiopulmonary disease. 5. If there is continued concern, recommend frontal and lateral chest radiographs or CT. 6. No findings to suggest pneumoperitoneum or bowel obstruction
[2019-12-10] MEDS ORDERED: Morphine Sulfate 4mg/ml Inj (IV USE ONLY) IVP ONE
[2019-12-10 00:10] LABS: BASOPHILS % (AUTO) 1.3 % (0.0-2.0); EOSINOPHILS % (AUTO) 1.2 % (0.0-3.0); HEMATOCRIT 32.8 % (37.0-47.0); HEMOGLOBIN 11.8 G/DL (12.0-16.0); LYMPHOCYTES % (AUTO) 17.5 % (20.0-45.0); MEAN CORPUSCULAR VOLUME 87 FL (80-99); MONOCYTES % (AUTO) 10.9 % (1.0-10.0); NEUTROPHILS % (AUTO) 69.1 % (45.0-75.0); PLATELET COUNT 202 K/UL (150-450); RED BLOOD COUNT 3.75 M/UL (4.20-5.40); RED CELL DISTRIBUTION WIDTH 12.1 % (11.6-14.8); WHITE BLOOD COUNT 5.8 K/UL (4.8-10.8)
[2019-12-10 00:13] LABS: APPEARANCE,URINE CLEAR; BILIRUBIN, URINE NEGATIVE (NEGATIVE); GLUCOSE, URINE (UA) NEGATIVE (NEGATIVE); KETONES,URINE NEGATIVE (NEGATIVE); LEUKOCYTE ESTERASE ,URINE NEGATIVE (NEGATIVE); NITRITE,URINE NEGATIVE (NEGATIVE); PH,URINE 7 (4.5-8.0); PROTEIN,URINE NEGATIVE (NEGATIVE); UROBILINOGEN,URINE NORMAL MG/DL (0.0-1.0)
[2019-12-10 00:18] LABS: ANION GAP 8 mmol/L (5-15); BLOOD UREA NITROGEN 8 mg/dL (7-18); CALCIUM 9.3 MG/DL (8.5-10.1); CARBON DIOXIDE 27 MMOL/L (21-32); CHLORIDE 104 MMOL/L (98-107); CREATININE 0.9 MG/DL (0.55-1.30); POTASSIUM 3.7 MMOL/L (3.5-5.1); SODIUM 139 MMOL/L (136-145)
[2019-12-10 00:19] LABS: COLOR,URINE YELLOW
[2019-12-10 00:22] LABS: ALANINE AMINOTRANSFERASE 21 U/L (12-78); ALBUMIN 4.4 G/DL (3.4-5.0); ALBUMIN/GLOBULIN RATIO 1.8 (1.0-2.7); ALKALINE PHOSPHATASE 55 U/L (46-116); ASPARTATE AMINO TRANSFERASE 16 U/L (15-37); BILIRUBIN,TOTAL 0.2 MG/DL (0.2-1.0)
[2019-12-10] MEDS ORDERED: VALIUM5 MG ORAL (00:30)
[2019-12-10] MEDS ORDERED: NORCO 5-325 TA1 EAC1 ORAL (00:30)
[2019-12-10 01:00] VITALS: BP 116/72
== END 2019-12-10 01:00 | disposition home or self-care (01) ==
LOC: EMR 23:27
DX: F41.9 Anxiety disorder, unspecified (principal); R00.2 Palpitations; R42 Dizziness and giddiness; R51 Headache; C34.92 Malignant neoplasm of unspecified part of left bronchus or lung; Z88.8 Allergy status to other drugs, medicaments and biological substances; R06.02 Shortness of breath; G89.29 Other chronic pain
CPT/HCPCS: 36415; 71045; 80053; 80307; 81003; 81025; 83690; 83735; 85025; J2270; J2405; J7030; Z7502; 99282

== ENCOUNTER 2020-08-18 19:09 | Emergency (ER) | payer MEDICAID ==
[~2020-08-18] VITALS: Ht 157.5 cm; Wt 51.7 kg
[~2020-08-18 19:09] MED LIST changes: +NORCO 5-325 TA1 EAC1 ORAL; +VALIUM5 MG ORAL
--- NOTE | 2020-08-18 20:30 | NUR ---
ED Nurse Note: Patient came in the ED complaining of left chest, breast area pain for the past two days. pain level is 9/10. Patient also complains of bladder spasm, frequency. Patient reports left Lung Ca. currently on hospice. Patient denies blood in the urine, back pain.
--- NOTE | 2020-08-18 20:38 | Emergency Room Report ---
History of Present Illness General Chief Complaint: General Complaint Source: Patient Present Illness HPI Disclaimer: Please note that this report is being documented using [employer] technology. This can lead to erroneous entry secondary to incorrect interpretation by the dictating instrument. HPI: 40-year-old female history of lung cancer with metastases to axillary lymph nodes, bone, liver presents for evaluation of lumps in the left breast. Patient is in hospice no longer receiving chemotherapy. She noticed some painful lumps in the left breast in the left axilla over the past few days. Difficult controlling pain. Denies retraction of the nipple, swelling of the breast, overlying skin changes, fever, chills, nausea, vomiting, diarrhea. Pain is worse with palpation. Denies drainage from the nipple. No skin breakdown noted. Also complaining of urinary frequency and urgency. States she has a history of bladder spasms that was caused by the chemotherapy. PMH: Metastatic cancer PSH: Reviewed Allergies: Haldol, Reglan Social Hx: Reviewed Allergies: Coded Allergies: HALOPERIDOL (Verified Allergy, Unknown, 11/13/19) METOCLOPRAMIDE (Verified Allergy, Unknown, 11/13/19) COVID-19 Screening Contact w/high risk pt: No Recent Travel to affected area: No Experienced COVID-19 symptoms?: No COVID-19 symptoms experienced: Shortness of Breath COVID-19 Testing performed [facility] ADMINISTRATOR: No Nursing Documentation-PMH Past Medical History: No History, Except For Hx Cardiac Problems: Yes Hx Hypertension: No Hx Pacemaker: No Hx Asthma: No Hx COPD: No Hx Diabetes: No Hx Cancer: Yes Hx Gastrointestinal Problems: Yes - Peptic ulcer Hx Dialysis: No Hx Neurological Problems: No Hx Cerebrovascular Accident: No Hx Seizures: Yes Review of Systems All Other Systems: negative except mentioned in HPI Physical Exam Vital Signs Date Time Temp Pulse Resp B/P (MAP) Pulse Ox O2 Delivery O2 Flow Rate FiO2 08/18/20 20:14 98.4 74 16 105/65 (78) 96 Room Air General: Awake and alert, no acute distress HEENT: NC/AT. EOMI. Chest Wall: Breasts are symmetrical. No nipple retraction. No peeled around. No overlying cellulitis, warmth. There are palpable and tender masses throughout the left breast and into the left axilla. No overlying skin changes or breakdown. Resp: Normal work of breathing Skin: Intact. No abrasions, laceration or rash over the exposed skin. Fentanyl patch left arm. Nicotine patch left arm. MSK: Normal tone and bulk. Moving all extremities. No obvious deformity. Neuro: Awake and alert. Mentating appropriately Sp02 EP Interpretation: reviewed Medical Decision Making Diagnostic Impression: Primary Impression: Breast lump ER Course 40-year-old female history of metastatic lung cancer currently in hospice care presents for evaluation of left painful breast and axilla. Concern for additional metastases, abscess, cellulitis among others. Bedside ultrasound does not show obvious drainable fluid collection. There may be some ductal dilation versus very small pockets of fluid but large fluid collection or cobblestoning seen on bedside ultrasound. No overlying skin changes to suggest cellulitis or deep space infection. Given that the lumps are present on the same side as the metastatic lymph nodes in the left axilla concern for spreading cancer. Patient provided with IM pain medication. No urinary tract infection identified. Patient can follow-up with her PMD for outpatient ultrasound of the left breast but there is no obvious infectious process at this time. Pain controlled. Instructed to return new or worsening symptoms. Diagnostic POCUS Bedside Ultrasound Diagnostics: Bedside US Exam performed: Soft Tissue Limited Indication: Other - Breast, left Number of Views: Limited Interpreted by Emergency Physi: Yes Soft Tissue Limited Findings: No cobblestone appearance, Other - Indeterminate fluid collection versus ductal dilation Impression: Other - Indeterminate fluid collection versus ductal dilation Electronically Signed by: Electronically signed by Dr. Theodore Villeda MD Last Vital Signs Date Time Temp Pulse Resp B/P (MAP) Pulse Ox O2 Delivery O2 Flow Rate FiO2 08/18/20 20:14 98.4 74 16 105/65 (78) 96 Room Air Disposition: HOME, SELF-CARE Condition: Stable Theodore Villeda MD Aug 18, 2020 20:38
[2020-08-18 20:45] LABS: APPEARANCE,URINE CLEAR; BILIRUBIN, URINE NEGATIVE (NEGATIVE); COLOR,URINE PALE YELLOW; GLUCOSE, URINE (UA) NEGATIVE (NEGATIVE); KETONES,URINE NEGATIVE (NEGATIVE); LEUKOCYTE ESTERASE ,URINE NEGATIVE (NEGATIVE); NITRITE,URINE NEGATIVE (NEGATIVE); PH,URINE 6.5 (4.5-8.0); PROTEIN,URINE NEGATIVE (NEGATIVE); UROBILINOGEN,URINE NORMAL MG/DL (0.0-1.0)
[2020-08-18] MEDS ORDERED: Morphine Sulfate 2mg/ml Inj(IV/IM USE ONLY) IM ONE (20:45)
[2020-08-18 21:07] VITALS: BP 105/65
== END 2020-08-18 22:17 | disposition home or self-care (01) ==
LOC: EMR 20:35
DX: N63.20 Unspecified lump in the left breast, unspecified quadrant (principal); G40.909 Epilepsy, unspecified, not intractable, without status epilepticus; Z85.118 Personal history of other malignant neoplasm of bronchus and lung; Z85.89 Personal history of malignant neoplasm of other organs and systems; Z88.8 Allergy status to other drugs, medicaments and biological substances; Z87.11 Personal history of peptic ulcer disease
CPT/HCPCS: 81003; 96372; J2270; Z7502; 99283